=== PATIENT | female | born 1995 | race Two or more races ===

== ENCOUNTER 2023-12-04 10:57 | Outpatient (CLI) | payer OTHER | END 2023-12-04 10:58 | disposition home or self-care (01) | LOC: PRENATAL 10:57 | PROVIDERS: ATTEND Obstetrics & Gynecology Maternal & Fetal Medicine | DX: O36.80X0 Pregnancy with inconclusive fetal viability, not applicable or unspecified (principal); Z36.82 Encounter for antenatal screening for nuchal translucency; Z3A.13 13 weeks gestation of pregnancy ==

== ENCOUNTER 2024-01-22 10:46 | Outpatient (CLI) | payer OTHER | END 2024-01-22 10:47 | disposition home or self-care (01) | LOC: PRENATAL 10:46 | PROVIDERS: ATTEND Obstetrics & Gynecology Maternal & Fetal Medicine | DX: O44.00 Complete placenta previa NOS or without hemorrhage, unspecified trimester (principal); Z3A.20 20 weeks gestation of pregnancy ==

== ENCOUNTER 2024-04-22 10:41 | Outpatient (CLI) | payer OTHER | END 2024-04-22 10:43 | disposition home or self-care (01) | LOC: PRENATAL 10:41 | PROVIDERS: ATTEND Obstetrics & Gynecology Maternal & Fetal Medicine | DX: O26.849 Uterine size-date discrepancy, unspecified trimester (principal); O36.8199 Decreased fetal movements, unspecified trimester, other fetus; Z3A.33 33 weeks gestation of pregnancy ==

== ENCOUNTER 2024-05-30 14:39 | Inpatient (IN) | payer OTHER ==
[~2024-05-30] VITALS: Ht 162.6 cm; Wt 82.6 kg
[2024-05-30] MEDS ORDERED: SERTRALINE HCL25 MG PO (17:18)
[2024-05-30] MEDS ORDERED: PEPCID AC20 MG PO (17:19)
[2024-05-30] MEDS ORDERED: OBSTETRIX DHA1 EAC1 PO (17:19)
[2024-06-03 08:02] VITALS: BP 128/77
[2024-06-03] MEDS ORDERED: AMPICILLIN SODIUM 2,000 MG VIAL ONE (08:20)
[2024-06-03] MEDS ORDERED: RINGERS SOLUTION,LACTATED 1,000 ML IV SCH (08:45)
[2024-06-03] MEDS ORDERED: AMPICILLIN SODIUM 2,000 MG VIAL IV ONE (08:45)
[2024-06-03 09:09] LABS: HEMOGLOBIN 13.3 g/dL (12.0-15.00); MEAN CELL VOLUME 88.4 fL (80.00-100.00); PLATELET COUNT 201 K/uL (150-450); RED CELL DISTRIBUTION WIDTH 14.5 % (11.5-14.5)
[2024-06-03 09:14] LABS: URINE APPEARANCE Clear; URINE BILIRRUBIN Negative (NEGATIVE); URINE BLOOD Negative; URINE COLOR Yellow; URINE GLUCOSE Negative (NEGATIVE); URINE KETONE Negative (NEGATIVE); URINE LEUKOCYTE Negative; URINE NITRATE Negative; URINE PROTEIN Negative (NEGATIVE); URINE UROBILINOGEN 0.2 E.U./dl
[2024-06-03 09:19] LABS: URINE BACTERIA 211.6 uL (0.0-1933); URINE WBC 8.6 uL (0.0-23.2)
[2024-06-03 09:33] LABS: URINE RBC 0.5 uL (0.0-20.8)
[2024-06-03 10:01] LABS: INR < 0.93; PARTIAL THROMBOPLASTIN TIME 24.3 SECONDS (22.0-34.0); PROTHROMBIN TIME 9.7 SECONDS (9.0-11.5)
[2024-06-03 10:07] LABS: ALBUMIN 2.7 gm/dL (3.4-5.0); BILIRUBIN TOTAL 0.34 mg/dL (0.3-1.2); CALCIUM 9.1 mg/dL (8.5-10.1); CREATININE SERUM 0.77 mg/dL (0.55-1.02); GFR 88.63; POTASSIUM 4.2 mEq/L (3.5-5.1); TOTAL PROTEIN 6.7 gm/dL (6.4-8.2)
[2024-06-03 11:12] VITALS: BP 119/64
[2024-06-03] MEDS ORDERED: MISOPROSTOL 25 MCG/4 ML GEL.W.APPL ONE ×2 (11:42→16:09)
[2024-06-03] MEDS ORDERED: MISOPROSTOL 25 MCG/4 ML GEL.W.APPL VAG ONE ×2 (12:00→16:30)
[2024-06-03] MEDS ORDERED: AMPICILLIN SODIUM 1,000 MG VIAL IV SCH (13:00)
[2024-06-03 15:13] VITALS: BP 121/67
[2024-06-03 19:09] VITALS: BP 129/80
[2024-06-03 23:32] VITALS: BP 104/66
[2024-06-04 03:53] VITALS: BP 112/60
[2024-06-04 08:11] VITALS: BP 106/66
[2024-06-04] MEDS ORDERED: OXYTOCIN 500 ML IV SCH (09:15)
[2024-06-04 12:36] VITALS: BP 124/78
[2024-06-04] MEDS ORDERED: MORPHINE SULFATE 4 MG/ML VIAL IV ONE (13:00)
[2024-06-04 16:27] VITALS: BP 135/68
[2024-06-04] MEDS ORDERED: MORPHINE SULFATE 4 MG/ML VIAL IV PRN (16:45)
[2024-06-04] MEDS ORDERED: CHLORHEXIDINE GLUCONATE 120 ML BOTTLE TOP ONE (18:36)
[2024-06-04] MEDS ORDERED: ERYTHROMYCIN BASE OPHT 1GM EACH TUBE OP ONE (18:36)
[2024-06-04] MEDS ORDERED: LIDOCAINE HCL 1% 10ML VIAL ONE (18:36)
[2024-06-04] MEDS ORDERED: OXYTOCIN 20 UNITS/1000ML RL PIGGYBAG IV ONE (18:36)
[2024-06-04 19:26] VITALS: BP 120/70
[2024-06-04] MEDS ORDERED: ACETAMINOPHEN 500 MG GEL..CAP PO PRN (21:45)
[2024-06-04] MEDS ORDERED: OXYTOCIN 1,000 ML IV SCH (22:30)
[2024-06-04] MEDS ORDERED: CHLORHEXIDINE GLUCONATE 120 ML BOTTLE TP SCH (22:30)
[2024-06-04 23:32] VITALS: BP 87/60
[2024-06-05 01:10] VITALS: BP 110/69
[2024-06-05 07:23] LABS: MEAN CELL VOLUME 88.9 fL (80.00-100.00); MEAN CORPUSCULAR HEMOGLOBIN 30.7 pg (27.00-32.0); MEAN CORPUSCULAR HGB CONC 34.5 g/dl (32.0-36.0); PLATELET COUNT 187 K/uL (150-450); RED BLOOD COUNT 3.71 M/uL (4.00-6.00); RED CELL DISTRIBUTION WIDTH 14.6 % (11.5-14.5)
[2024-06-05 07:40] LABS: HEMOGLOBIN 11.4 g/dL (12.0-15.00)
[2024-06-05 08:07] VITALS: BP 116/75
[2024-06-05] MEDS ORDERED: PNV,CALCIUM 72/IRON/FOLIC ACID 1 TAB TABLET PO SCH (09:00)
[2024-06-05 16:00] VITALS: BP 114/73
[2024-06-06] VITALS: BP 122/71
[2024-06-06 08:55] VITALS: BP 136/85
== END 2024-06-06 16:47 | disposition home or self-care (01) | DRG 807 ==
LOC: OB/GYN → LDR 06-03 07:18 → OB/GYN 06-03 12:57 → LDR 06-03 14:05 → OB/GYN 06-04 23:00
PROVIDERS: Obstetrics & Gynecology; ADMIT Obstetrics & Gynecology; ATTEND Obstetrics & Gynecology
PROC: 3E0P7VZ Introduction of Hormone into Female Reproductive, Via Natural or Artificial Opening (ICD-10-PCS; 2024-06-03)
PROC: 4A1HXCZ Monitoring of Products of Conception, Cardiac Rate, External Approach (ICD-10-PCS; 2024-06-03)
PROC: 10E0XZZ Delivery of Products of Conception, External Approach (ICD-10-PCS; principal; 2024-06-04)
PROC: 0UQG7ZZ Repair Vagina, Via Natural or Artificial Opening (ICD-10-PCS; 2024-06-04)
PROC: 3E033VJ Introduction of Other Hormone into Peripheral Vein, Percutaneous Approach (ICD-10-PCS; 2024-06-04)
DX: O71.4 Obstetric high vaginal laceration alone (principal); Z37.0 Single live birth; O99.824 Streptococcus B carrier state complicating childbirth; Z3A.39 39 weeks gestation of pregnancy

== ENCOUNTER 2024-05-30 17:16 | Outpatient (CLI) | payer OTHER ==
[2024-05-30 16:40] VITALS: BP 109/50
[2024-05-30] MEDS ORDERED: SERTRALINE HCL25 MG PO (17:18)
[2024-05-30] MEDS ORDERED: OBSTETRIX DHA1 EAC1 PO (17:19)
[2024-05-30] MEDS ORDERED: PEPCID AC20 MG PO (17:19)
[2024-05-30] MEDS ORDERED: RINGERS SOLUTION,LACTATED 1,000 ML IV SCH (17:30)
[2024-05-30 20:32] VITALS: BP 110/66
[2024-05-30 23:14] VITALS: BP 104/65
[2024-05-31 02:37] VITALS: BP 99/69
[2024-05-31 06:43] VITALS: BP 115/78
== END 2024-05-31 12:14 | disposition home or self-care (01) ==
LOC: OBS/DEL 17:16
PROVIDERS: ATTEND Obstetrics & Gynecology
DX: O47.1 False labor at or after 37 completed weeks of gestation (principal); Z3A.38 38 weeks gestation of pregnancy